=== PATIENT | female | born 2000 | race American Indian/Alaskan Native ===

== ENCOUNTER 2022-03-23 10:21 | Outpatient (CLI) | payer MEDICAID ==
[2022-03-23] MEDS ORDERED: LACTATED RINGERS 500 ML IV ONE (10:54)
--- NOTE | 2022-03-23 13:35 | Ultrasound Report ---
ULTRASOUND ABDOMEN, COMPLETE INDICATION / CLINICAL INFORMATION: ABDOMINAL PAIN. Patient is COMPARISON: None available. FINDINGS: PANCREAS: No significant abnormality. ABDOMINAL AORTA: No significant abnormality. IVC: No significant abnormality. LIVER: No significant abnormality. Normal hepatopedal blood flow in the main portal vein. GALLBLADDER: Moderate to large amount of gallbladder sludge. No focal or gallbladder wall thickening or edema. BILE DUCTS: No significant abnormality. Common bile duct measures 4 mm. KIDNEYS: Right: No significant abnormality. Left: No significant abnormality. SPLEEN: No significant abnormality. FREE FLUID: None. ADDITIONAL FINDINGS: None. IMPRESSION: 1. Moderate to large amount of gallbladder sludge. No definite stones or gallbladder wall edema. Signer Name: Everett Joseph MD Signed: 03/23/2022 1:31 PM Workstation Name: [id number]
--- NOTE | 2022-03-23 13:37 | Ultrasound Report ---
ULTRASOUND OBSTETRIC LIMITED INDICATION / CLINICAL INFORMATION: ABDOMINAL PAIN AND BACK PAIN - R/O ABRUPTION. - Clinical Gestational Age (GA) in weeks, days: 23, 0 TECHNIQUE: Transabdominal and Transvaginal. COMPARISON: None available. FINDINGS: HEART RATE (beats per minute): 141 AMNIOTIC FLUID INDEX (cm) = not measured but subjectively normal (normal = 7-24 cm) PRESENTATION: Cephalic. ADDITIONAL FINDINGS: Placenta is anterior and free of the os. No sonographic evidence for placental a bruption. Central placental venous pozo measuring 3.9 x 2.3 x 1.9 cm. Cervical length is 4 cm. IMPRESSION: 1. No sonographic evidence for placental abruption. Signer Name: Everett Joseph MD Signed: 03/23/2022 1:33 PM Workstation Name: [id number]
[2022-03-23 13:51] LABS: Bilirubin,Urine NEG (Negative); Blood,Urine NEG (Negative); Color,Urine Yellow (Yellow); Protein,Urine <15 mg/dL mg/dL (Negative); Urobilinogen,Urine < 2.0 mg/dL (<2.0)
[2022-03-23 13:56] LABS: Mucus,Urine FEW /HPF
[2022-03-23 14:56] VITALS: BP 125/72
== END 2022-03-23 15:15 | disposition home or self-care (01) ==
LOC: TRG 10:21 → APU 10:24 → TRG 15:15
PROVIDERS: ATTEND Obstetrics & Gynecology
DX: O26.892 Other specified pregnancy related conditions, second trimester (principal); Z3A.25 25 weeks gestation of pregnancy
CPT/HCPCS: 59025; 76700; 76815; 76817; 81001